=== PATIENT | male | born 1995 | race Caucasian/White ===

== ENCOUNTER → 2019-06-08 | Emergency (ER) | payer OTHER, BC ==
[~2019-06-08] VITALS: Ht 193 cm; Wt 97.5 kg
[~2019-06-08] MED LIST: CEFTRIAXONE SOD 1 GM/NS 50 ML 50 ML IV ONE; FAMOTIDINE 20 MG/2 ML VIAL IV ONE; ONDANSETRON HCL INJ 2MG/ML 2ML 2 MG/ML VIAL IV ONE; PREDNISONE5 MG PO; SODIUM CHLORIDE 0.9% 1000ML 1,000 ML IV STA; TACROLIMUS1 MG PO
--- OUTSIDE RECORDS SUMMARY | 2019-06-08 14:41 | XMS REPORT ---
Author Author [facility] Address Unknown Phone Unavailable Care Team Providers Care Stacker Operator Name Role Phone RAGINI CHADWICK Unavailable Unavailable Problems This patient has no known problems. Allergies, Adverse Reactions, Alerts This patient has no known allergies or adverse reactions. Medications This patient has no known medications. Results Test Description Test Time Test Comments Text Results Atomic Results Result Comments URINALYSIS W/ REFLEX URINE CULTURE 2019-05-24 16:35:00 COLOR (BEAKER) (test nyxc=046) Yellow CLARITY (BEAKER) (test mifq=174) Clear SPECIFIC GRAVITY UA (BEAKER) (test rqdq=303) 1.027 1.001-1.035 PH UA (BEAKER) (test cyqr=132) 5.5 5.0-8.0 PROTEIN UA (BEAKER) (test cspf=778) 200 mg/dL Negative GLUCOSE UA (BEAKER) (test uyey=156) Negative Negative KETONES UA (BEAKER) (test fviz=607) 40 mg/dL Negative BILIRUBIN UA (BEAKER) (test btoq=364) Negative Negative BLOOD UA (BEAKER) (test tjxp=987) Negative Negative NITRITE UA (BEAKER) (test oasm=346) Negative Negative LEUKOCYTE ESTERASE UA (BEAKER) (test pfcp=741) Negative Negative UROBILINOGEN UA (BEAKER) (test iliu=306) 2.0 mg/dL 0.2-1.0 RBC UA (BEAKER) (test ksdl=569) 1 /HPF WBC UA (BEAKER) (test hwik=696) 2 /HPF SQUAMOUS EPITHELIAL (BEAKER) (test fpog=930) 1 /HPF SOURCE(BEAKER) (test supt=6621) [id number] 14:59:00* Test Item Value Reference Range Comments MAGNESIUM (BEAKER) (test mpit=996) 1.5 mg/dL 1.6-2.6 BASIC METABOLIC [id number] 14:59:00* Test Item Value Reference Range Comments SODIUM (BEAKER) (test zump=847) 132 meq/L 136-145 POTASSIUM (BEAKER) (test jwoe=405) 4.2 meq/L 3.5-5.1 CHLORIDE (BEAKER) (test uqbr=931) 104 meq/L 98-107 CO2 (BEAKER) (test bzhn=575) 17 meq/L 22-29 BLOOD UREA NITROGEN (BEAKER) (test qpsa=497) 27 mg/dL 7-21 CREATININE (BEAKER) (test nfue=665) 1.98 mg/dL 0.57-1.25 GLUCOSE RANDOM (BEAKER) (test tsoy=832) 92 mg/dL 70-105 CALCIUM (BEAKER) (test chdk=490) 10.4 mg/dL 8.4-10.2 EGFR (BEAKER) (test ciib=9185) 41 mL/min/1.73 sq m ESTIMATED GFR IS NOT ACCURATE CREATININE CLEARANCE IN PREDICTING GLOMERULAR FILTRATION RATE. ESTIMATED GFR IS NOT APPLICABLE FOR DIALYSIS PATIENTS. HEPATIC FUNCTION [id number] 14:59:00* Test Item Value Reference Range Comments TOTAL PROTEIN (BEAKER) (test bzeh=131) 8.5 gm/dL 6.0-8.3 ALBUMIN (BEAKER) (test rjln=4438) 4.5 g/dL 3.5-5.0 BILIRUBIN TOTAL (BEAKER) (test ysvf=649) 0.8 mg/dL 0.2-1.2 BILIRUBIN DIRECT (BEAKER) (test smat=000) 0.4 mg/dL 0.1-0.5 ALKALINE PHOSPHATASE (BEAKER) (test yzku=464) 62 U/L 40-150 AST (SGOT) (BEAKER) (test psxr=835) 29 U/L 5-34 ALT (SGPT) (BEAKER) (test boxw=065) 28 U/L 6-55 PT/[id number] 14:47:00* Test Item Value Reference Range Comments PROTIME (BEAKER) (test awda=038) 14.0 seconds 11.9-14.2 INR (BEAKER) (test rypg=645) 1.1 <=5.9 PARTIAL THROMBOPLASTIN TIME (BEAKER) (test goxl=500) 35.4 seconds 22.5-36.0 Effective 03/02/2019: PT Reference Range ChangeNew: 11.9-14.2 Previous: 11.7-14. 7RECOMMENDED COUMADIN/WARFARIN INR THERAPY RANGESSTANDARD DOSE: 2.0-3.0 Include s: PROPHYLAXIS for venous thrombosis, systemic embolization; TREATMENT for venou s thrombosis and/or pulmonary embolus.HIGH RISK: Target INR is 2.5-3.5 for patie nts wiht mechanical heart valves.CBC W/PLT COUNT & AUTO [id number] 14:43:00* Test Item Value Reference Range Comments WHITE BLOOD CELL COUNT (BEAKER) (test jbup=448) 9.0 K/ L 3.5-10.5 RED BLOOD CELL COUNT (BEAKER) (test ytba=476) 5.11 M/ L 4.63-6.08 HEMOGLOBIN (BEAKER) (test mpws=541) 14.6 GM/DL 13.7-17.5 HEMATOCRIT (BEAKER) (test nbif=971) 44.5 % 40.1-51.0 MEAN CORPUSCULAR VOLUME (BEAKER) (test etwq=400) 87.1 fL 79.0-92.2 MEAN CORPUSCULAR HEMOGLOBIN (BEAKER) (test equf=913) 28.6 pg 25.7-32.2 MEAN CORPUSCULAR HEMOGLOBIN CONC (BEAKER) (test xxbs=612) 32.8 GM/DL 32.3-36.5 RED CELL DISTRIBUTION WIDTH (BEAKER) (test jvqv=620) 12.3 % 11.6-14.4 PLATELET COUNT (BEAKER) (test cxos=270) 168 K/CU MM 150-450 MEAN PLATELET VOLUME (BEAKER) (test lrih=181) 10.7 fL 9.4-12.4 NUCLEATED RED BLOOD CELLS (BEAKER) (test yfbc=958) 0 /100 WBC 0-0 NEUTROPHILS RELATIVE PERCENT (BEAKER) (test ggpk=630) 84 % LYMPHOCYTES RELATIVE PERCENT (BEAKER) (test nesq=975) 7 % MONOCYTES RELATIVE PERCENT (BEAKER) (test xsjw=117) 9 % EOSINOPHILS RELATIVE PERCENT (BEAKER) (test efns=256) 0 % BASOPHILS RELATIVE PERCENT (BEAKER) (test hegb=918) 0 % NEUTROPHILS ABSOLUTE COUNT (BEAKER) (test wplg=916) 7.54 K/ L 1.78-5.38 LYMPHOCYTES ABSOLUTE COUNT (BEAKER) (test qzai=084) 0.63 K/ L 1.32-3.57 MONOCYTES ABSOLUTE COUNT (BEAKER) (test akvk=850) 0.81 K/ L 0.30-0.82 EOSINOPHILS ABSOLUTE COUNT (BEAKER) (test sxgm=904) 0.00 K/ L 0.04-0.54 BASOPHILS ABSOLUTE COUNT (BEAKER) (test ubcc=020) 0.01 K/ L 0.01-0.08 IMMATURE GRANULOCYTES-RELATIVE PERCENT (BEAKER) (test evhk=6658) 0 % 0-1 RAD, CHEST, 1 VIEW, NON [id number] 14:25:00It's ok to speak to mom regarding patient's information.Reason for exam:->SOB, CoughShould this be performed at the bedside?->YesFINAL REPORT INDICATION: SOB, Cough COMPARISON: June 25, 2015 TECHNIQUE: Single frontal view of the chest. FINDINGS: Lungs and pleura: Clear lungs. No effusion.Heart and mediastinum: Normal heart size. Unremarkable mediastinal contours.Osseous structures: No acute abnormality.Other: None. IMPRESSION: No acute intrathoracic abnormality. Signed: Haven Morales MDReport Verified Date/Time: 05/24/2019 14:25:38 Reading Location: [facility] Radiology Reading Room
--- OUTSIDE RECORDS SUMMARY | 2019-06-08 14:41 | XMS REPORT | Clinical Summary ---
Author Author [facility] Address Unknown Phone Unavailable Care Team Providers Care Director Of Recruitment And Admissions Name Role Phone Asked, No Pcp PCP Unavailable Allergies Not on File Medications Not on file Active Problems Not on file Social History Date Tobacco Use Types Packs/Day Years Used Never Assessed Sex Assigned at Date Recorded Not on file Industry Job Start Date Occupation Not on file Not on file Not on file Travel End Travel History Travel Start No recent travel history available. Last Filed Vital Signs Not on file Plan of Treatment Health Maintenance Due Date Last Done Comments INFLUENZA VACCINE 05/05/2019 Results Not on fileafter 06/07/2018 Insurance Type Payer Benefit Subscriber ID Effective Phone Address Plan / Dates Group HMO CIGNA CIGNA OPEN xxxxxxxxxxx 2016-P ACCESS/NET resent WORK Advance Directives For more information, please contact: [phone] Patient It Architect Explanation Type Date Recorded Advance Directives, Living Will and Medical Power of [place] Machine Operator
--- OUTSIDE RECORDS SUMMARY | 2019-06-08 14:41 | XMS REPORT | Clinical Summary ---
Author Author [facility] Address Unknown Phone Unavailable Care Team Providers Care Family Caseworker Name Role Phone Pcp, No PCP Unavailable Allergies Comments Active Allergy Reactions Severity Noted Date Ergocalciferol (Vitamin Rash Low 05/30/2014 D2) Medications End Date Status Medication Sig Dispensed Refills Start Date Active loratadine (CLARITIN) 10 Take 10 mg by 0 mg tablet mouth daily. Active sodium bicarbonate 648 MG Take 1 tablet 60 tablet 1 tabletIndications: S/P (650 mg 6 kidney transplant total) by mouth 2 (two) times daily. Active predniSONE (DELTASONE) 5 Take 5 mg by 0 MG tablet mouth daily. Active b complex vitamins tablet Take 1 tablet 0 by mouth daily. 05/31/2019 ondansetron (ZOFRAN) 4 MG Take 1 tablet 12 tablet 0 tablet (4 mg total) 9 by mouth every 6 (six) hours for 7 days. Active Problems Problem Noted Date Rash 06/26/2015 Fever 06/26/2015 CAMILA (acute kidney injury) 06/26/2015 Overview: Due to hypoperfusion from fever, poor po intake and then Prograf toxicity--resolved at discharge to Creatinine of 1.5. Serum sickness 06/05/2015 Overview: due to thymo Immunosuppressed status 02/20/2015 Last Assessment & Plan: Bactrim, Valcyte, Clotrimazole prophylaxis. 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 Doing well. Will follow. Encounters Care Team Description Date Type Specialty Clint King MD Dehydration (Primary Dx); Non-intractable cyclical vomiting with nausea; Kidney transplant recipient; ESRD (end stage renal disease) (HCC) 05/24/2019 Emergency Emergency Medicine Angélica Branham RN 03/23/2019 Documentation after 06/07/2018 Family History Medical History Relation Name Comments Hypertension Father Cancer Maternal Grandfather Cancer Maternal Grandmother Cancer Mother Relation Name Status Comments Father Maternal Grandfather Maternal Grandmother Mother Social History Date Tobacco Use Types Packs/Day Years Used Quit: 12/24/2014 Former Smoker Smokeless Tobacco: Former Snuff User Tobacco Cessation: Counseling Given: Yes Comments: 1 can every 2 days/ quit 12/24/14 Alcohol Use Drinks/Week oz/Week Comments No Sex Assigned at Date Recorded Not on file Industry Job Start Date Occupation Not on file Not on file Not on file Travel End Travel History Travel Start No recent travel history available. Last Filed Vital Signs Time Taken Vital Sign Reading 05/24/2019 6:42 PM CDT Blood Pressure 120/68 05/24/2019 6:42 PM CDT Pulse 78 05/24/2019 6:42 PM CDT Temperature 36.7 C (98 F) 05/24/2019 6:42 PM CDT Respiratory Rate 18 05/24/2019 1:39 PM CDT Oxygen Saturation 100% - Inhaled Oxygen - Concentration 05/24/2019 1:39 PM CDT Weight 97.5 kg (215 lb) 05/24/2019 1:39 PM CDT Height 190.5 cm (6' 3") 05/24/2019 1:39 PM CDT Body Mass Index 26.87 Plan of Treatment Not on file Implants Device Identifier Shelf Expiration Date Model / Serial / Lot Implanted Type Area Manufactur er 09/03/2017 [id number] / / [id number] Stent,Uret Polaris 5fr X 10cm - Uro Stent Right: Ureter [id number] [employer] Implanted: Qty: 1 on 01/17/2015 by Priscilla Vasquez MD Procedures Comments Procedure Name Priority Date/Time Associated Diagnosis URINALYSIS W/ REFLEX STAT 05/24/2019 URINE CULTURE 4:22 PM CDT CBC W/PLT COUNT & AUTO STAT 05/24/2019 DIFFERENTIAL 2:31 PM CDT MAGNESIUM STAT 05/24/2019 2:31 PM CDT HEPATIC FUNCTION PANEL STAT 05/24/2019 2:31 PM CDT BASIC METABOLIC PANEL (7) STAT 05/24/2019 2:31 PM CDT PT/APTT STAT 05/24/2019 2:31 PM CDT CBC W/PLT COUNT & AUTO STAT 05/24/2019 DIFFERENTIAL 2:31 PM CDT XR CHEST 1 VIEW STAT 05/24/2019 PORTABLE/BEDSIDE 1:55 PM CDT after 06/07/2018 Results * Urinalysis w/Microscopic + Reflex to Culture (05/24/2019 4:22 PM CDT) Color, UA Yellow [facility] Clarity, UA Clear [facility] Specific [place], UA 1.027 1.001 - 1.035 [facility] pH, UA 5.5 5.0 - 8.0 [facility] Protein, UA 200 mg/dL (A) Negative [facility] Glucose, UA Negative Negative [facility] Ketones, UA 40 mg/dL (A) Negative [facility] Bilirubin, UA Negative Negative [facility] Blood, UA Negative Negative [facility] Nitrite, UA Negative Negative [facility] Leukocytes, UA Negative Negative [facility] Urobilinogen, UA 2.0 (H) 0.2 - 1.0 mg/dL [facility] RBC, UA 1 /HPF [facility] WBC, UA 2 /HPF [facility] Squam Epithel, UA 1 /HPF [facility] Specimen Source [facility] Specimen Urine Performing Organization Address City/State/Zipcode Phone Number [facility] [address] [place] [address] [facility] * PT/aPTT (05/24/2019 2:31 PM CDT) Protime 14.0 11.9 - 14.2 seconds [facility] INR 1.1 <=5.9 [facility] PTT 35.4 22.5 - 36.0 seconds [facility] Specimen Blood Narrative Performed At Effective 03/02/2019: PT Reference Range Change [facility] New: 11.9-14.2Previous: 11.7-14.7 [facility] RECOMMENDED COUMADIN/WARFARIN INR THERAPY RANGES STANDARD DOSE: 2.0-3.0Includes: PROPHYLAXIS for venous thrombosis, systemic embolization; TREATMENT for venous thrombosis and/or pulmonary embolus. HIGH RISK: Target INR is 2.5-3.5 for patients wiht mechanical heart valves. Performing Organization Address City/[facility]/Zipcode Phone Number [facility] [address] [place] [address] [facility] * CBC with platelet count + automated diff (05/24/2019 2:31 PM CDT) WBC 9.0 3.5 - 10.5 K/L [facility] RBC 5.11 4.63 - 6.08 M/L [facility] Hemoglobin 14.6 13.7 - 17.5 GM/DL [facility] Hematocrit 44.5 40.1 - 51.0 % [facility] MCV 87.1 79.0 - 92.2 fL [facility] MCH 28.6 25.7 - 32.2 pg [facility] MCHC 32.8 32.3 - 36.5 GM/DL [facility] RDW 12.3 11.6 - 14.4 % [facility] Platelets 168 150 - 450 K/CU MM [facility] MPV 10.7 9.4 - 12.4 fL [facility] nRBC 0 0 - 0 /100 WBC [facility] % Neutros 84 % [facility] % Lymphs 7 % [facility] % Monos 9 % [facility] % Eos 0 % [facility] % Baso 0 % [facility] # Neutros 7.54 (H) 1.78 - 5.38 K/L [facility] # Lymphs 0.63 (L) 1.32 - 3.57 K/L [facility] # Monos 0.81 0.30 - 0.82 K/L [facility] # Eos 0.00 (L) 0.04 - 0.54 K/L [facility] # Baso 0.01 0.01 - 0.08 K/L [facility] Immature 0 0 - 1 % [facility] Granulocytes-Relative [facility] Specimen Blood Performing Organization Address City/State/[place] [address] [phone] [place] [address] * Magnesium (05/24/2019 2:31 PM CDT) Magnesium 1.5 (L) 1.6 - 2.6 mg/dL [facility] Specimen Blood Performing Organization Address City/[facility]/Zipcode Phone Number [address] [address] [facility] * Hepatic function panel (05/24/2019 2:31 PM CDT) Protein, Total 8.5 (H) 6.0 - 8.3 gm/dL [facility] Albumin 4.5 3.5 - 5.0 g/dL [facility] Total Bilirubin 0.8 0.2 - 1.2 mg/dL [facility] Bilirubin, Direct 0.4 0.1 - 0.5 mg/dL [facility] Alkaline Phosphatase 62 40 - 150 U/L [facility] AST 29 5 - 34 U/L [facility] ALT 28 6 - 55 U/L [facility] Specimen Blood Performing Organization Address City/State/Zipcode Phone Number [facility] [address] [place] [address] [facility] * Basic Metabolic Panel (05/24/2019 2:31 PM CDT) Sodium 132 (L) 136 - 145 meq/L [facility] Potassium 4.2 3.5 - 5.1 meq/L [facility] Chloride 104 98 - 107 meq/L [facility] CO2 17 (L) 22 - 29 meq/L [facility] BUN 27 (H) 7 - 21 mg/dL [facility] Creatinine 1.98 (H) 0.57 - 1.25 mg/dL [facility] Glucose 92 70 - 105 mg/dL [facility] Calcium 10.4 (H) 8.4 - 10.2 mg/dL [facility] EGFR 41Comment: ESTIMATED GFR IS mL/min/1.73 sq m [facility] NOT ACCURATE CREATININE [facility] CLEARANCE IN PREDICTING GLOMERULAR FILTRATION RATE. ESTIMATED GFR IS NOT APPLICABLE FOR DIALYSIS PATIENTS. Specimen Blood Performing Organization Address City/State/Zipcode Phone Number [facility] [address] [place] [address] [facility] * XR chest 1 view portable / bedside (05/24/2019 1:55 PM CDT) Specimen Narrative Performed At FINAL REPORT GE RIS INDICATION: SOB, Cough COMPARISON: June 25, 2015 TECHNIQUE: Single frontal view of the chest. FINDINGS: Lungs and pleura: Clear lungs. No effusion. Heart and mediastinum: Normal heart size. Unremarkable mediastinal contours. Osseous structures: No acute abnormality. Other: None. IMPRESSION: No acute intrathoracic abnormality. Signed: Haven Morales MD Report Verified Date/Time:05/24/2019 14:25:38 Reading Location: [facility] Radiology Reading Room Procedure Note Interface, External Ris In - 05/24/2019 2:27 PM CDT FINAL REPORT INDICATION: SOB, Cough COMPARISON: June 25, 2015 TECHNIQUE: Single frontal view of the chest. FINDINGS: Lungs and pleura: Clear lungs. No effusion. Heart and mediastinum: Normal heart size. Unremarkable mediastinal contours. Osseous structures: No acute abnormality. Other: None. IMPRESSION: No acute intrathoracic abnormality. Signed: Haven Morales MD Report Verified Date/Time: 05/24/2019 14:25:38 Reading Location: [facility] Radiology Reading Room Performing Organization Address City/State/Zipcode Phone Number [facility] after 06/07/2018 Insurance Payer Benefit Subscriber ID Type Phone Address Plan / Group CIGNA - MGD CARE CIGNA xxxxxxxxxxx HMO/POS HMO/POS/OP EN ACCESS BLUE CROSS/BLUE SHIELD BCBS OS xxxxxxxxxxxx PPO [phone] [address] POS/PPO/[place] [address] O Advance Directives Patient has advance care planning documents, and code status on file. For more i nformation, please contact: [facility] [address] [place] [address] Date Inactivated Comments Code Status Date Activated 07/02/2015 2:13 PM Full Code 06/26/2015 4:18 AM This code status was determined by: Patient 01/21/2015 8:54 PM Full Code 01/17/2015 5:23 PM This code status was determined by: Patient 01/17/2015 5:23 PM Full Code 01/17/2015 6:41 AM This code status was determined by: Patient 01/17/2015 6:41 AM Full Code 01/16/2015 9:49 PM This code status was determined by: Patient
[2019-06-08 15:24] LABS: CLARITY,URINE CLEAR (CLEAR); COLOR,URINE STRAW (YELLOW); LEUKOCYTE ESTERASE ,URINE NEGATIVE (NEGATIVE); NITRITE,URINE NEGATIVE (NEGATIVE); PROTEIN,URINE DIPSTICK 1+ (NEGATIVE); URINE UROBILINOGEN 0.2 mg/dL (0.2 - 1)
[2019-06-08 15:25] LABS: AMPHETAMINES SCREEN,URINE NEGATIVE (NEGATIVE); BENZODIAZEPINES SCREEN,URINE NEGATIVE (NEGATIVE); BILIRUBIN,URINE NEGATIVE (NEGATIVE); KETONES,URINE NEGATIVE (NEGATIVE); PHENCYCLIDINE SCREEN,URINE NEGATIVE (NEGATIVE)
[2019-06-08 15:52] LABS: EPITHELIAL CELLS,URINE FEW /LPF
[2019-06-08 15:53] LABS: BASOPHILS # (AUTO) 0.1 (0.0-0.1); BASOPHILS % 0.6 % (0.0-1.0); EOSINOPHILS # (AUTO) 0.2 (0.0-0.4); EOSINOPHILS % 1.9 % (0.0-6.0); HEMATOCRIT 46.8 % (38.2-49.6); HEMOGLOBIN 15.7 g/dL (14.0-18.0); LYMPHOCYTES # (AUTO) 2.1 (1.0-3.2); LYMPHOCYTES % 21.4 % (18.0-39.1); MEAN CORPUSCULAR HEMOGLOBIN 28.3 pg (28-32); MEAN CORPUSCULAR HGB CONC 33.5 g/dL (31-35); MEAN CORPUSCULAR VOLUME 84.5 fL (81-99); MONOCYTES # (AUTO) 0.7 (0.2-0.8); MONOCYTES % 7.2 % (4.4-11.3); NEUTROPHILS # (AUTO) 6.8 (2.1-6.9); NEUTROPHILS % 68.4 % (38.7-80.0); PLATELET COUNT 353 x10e3/uL (140-360); RED BLOOD COUNT 5.54 x10e6/uL (4.3-5.7)
--- NOTE | 2019-06-08 16:01 | Diagnostic Imaging Report ---
EXAM: CHEST SINGLE (PORTABLE) DATE: 06/08/2019 2:58 PM INDICATION: Nausea, vomiting COMPARISON: None FINDINGS: The trachea is midline. The lungs are symmetrically expanded without evidence for large focal consolidation, pneumothorax, or significant pleural effusion. The cardiomediastinal silhouette and pulmonary vasculature are within normal limits. No acute osseous abnormality is identified. The surrounding soft tissues are unremarkable. IMPRESSION: No acute cardiopulmonary process identified. Signed by: Dr. Tolu Nassar MD on 06/08/2019 3:58 PM
[2019-06-08 16:03] LABS: INR 1.11; PROTHROMBIN TIME 14.8 seconds (11.9-14.5)
[2019-06-08 16:04] LABS: PARTIAL THROMBOPLASTIN TIME 31.7 seconds (23.8-35.5)
[2019-06-08 16:12] LABS: ALANINE AMINOTRANSFERASE 21 IU/L (0-55); ALBUMIN 4.4 g/dL (3.5-5.0); ALBUMIN/GLOBULIN RATIO 0.8 (0.8-2.0); ALKALINE PHOSPHATASE 76 IU/L (40-150); BLOOD UREA NITROGEN 123 mg/dL (7-26); BUN/CREATININE RATIO 31 (6-25); CALCIUM 11.6 mg/dL (8.4-10.2); CARBON DIOXIDE 17 mmol/L (22-29); CHLORIDE 102 mmol/L (98-107); CREATINE KINASE 15 IU/L (30-200); CREATININE, SERUM 3.98 mg/dL (0.72-1.25); EST GLOMERULAR FILTRATION RATE 18 ML/MIN (60-); GLUCOSE 109 mg/dL (74-118); LIPASE 70 U/L (8-78); MAGNESIUM 2.6 MG/DL (1.3-2.1); SODIUM 135 mmol/L (136-145)
[2019-06-08 16:21] LABS: B-TYPE NATRIURETIC PEPTIDE2 < 10.0 pg/mL (0-100)
[2019-06-08 16:31] LABS: THYROID STIMULATING HORMONE 0.327 uIU/mL (0.350-4.940)
[2019-06-08 16:43] LABS: ACETAMINOPHEN < 3 ug/mL (10-30); SALICYLATE < 5.0 mg/dL (0-30)
--- NOTE | 2019-06-08 17:33 | Diagnostic Imaging Report ---
EXAM: US RENAL RETROPERITONEAL COMP DATE: 06/08/2019 12:00 AM INDICATION: Status post kidney transplant, concern for hydronephrosis COMPARISON: None FINDINGS: The [place] kidneys are atrophic measuring 4.7 cm in length on the right and 5.2 cm in length on the left. . Cortical echogenicity is increased. No solid renal mass, hydronephrosis, or shadowing calculi are noted within the [place] kidneys. There is a right lower quadrant renal allograft measuring 12.4 x 4.6 x 5.8 cm. Cortical thickness and echogenicity are within normal limits. There is no evidence for solid renal mass, hydronephrosis, or shadowing calculi within the transplant kidney. The partially distended urinary bladder is grossly unremarkable. IMPRESSION: 1. Atrophic [place] kidneys. 2. Unremarkable sonographic appearance of the right lower quadrant transplant kidney. Signed by: Dr. Tolu Nassar MD on 06/08/2019 5:30 PM
--- NOTE | 2019-06-08 18:31 | NUR ---
REPORT GIVEN TO VICENTE SERRATO AT [facility] PT GOING TO ROOM [id number]
--- NOTE | 2019-06-08 18:34 | NUR ---
JOVANI AT [facility] CALLED FOR TRANSPORT ETA 30-45 MIN
[2019-06-08 20:11] VITALS: BP 135/98
== END | disposition other institution (70) ==
LOC: ER 14:38
DX: R11.2 Nausea with vomiting, unspecified (principal); R53.1 Weakness; J02.9 Acute pharyngitis, unspecified; B27.99 Infectious mononucleosis, unspecified with other complication; Z94.0 Kidney transplant status
CPT/HCPCS: 36415; 71045; 76770; 80053; 80307; 80329 ×2; 81001; 82550; 82553; 83518; 83605; 83690; 83735; 83880; 84443; 84484; 85025; 85610; 85730; 86308; 87040; 87070; 87086; 93005; 99284; J0696; J2405; J7030